=== PATIENT | female | born 1985 | race Asian ===

== ENCOUNTER 2017-06-07 00:39 | Inpatient (IN) | payer SELFPAY ==
[~2017-06-07] VITALS: Ht 165.1 cm; Wt 75.3 kg
[2017-06-07] MEDS ORDERED: PREN1SGL25 PO (01:06)
[2017-06-07] MEDS ORDERED: SYN.05 PO (01:07)
[2017-06-07] MEDS ORDERED: CARBOPROST 250 MCG/ML AMP IM PRN (01:10)
[2017-06-07] MEDS ORDERED: METHYLERGONOVINE 0.2 MG/ML AMP IM PRN (01:10)
[2017-06-07] MEDS ORDERED: NALBUPHINE HYDROCHLORIDE 10 MG/ML VIAL IVP PRN (01:10)
[2017-06-07] MEDS ORDERED: PROMETHAZINE 25 MG/ML VIAL IVP PRN (01:10)
[2017-06-07] MEDS ORDERED: OXYTOCIN 10 UNITS/ML VIAL IM SCH (01:10)
[2017-06-07] MEDS ORDERED: MISOPROSTOL 25 MCG TAB VG PRN (01:15)
[2017-06-07] MEDS: LACTATED RINGERS 1,000 ML IV SCH ×4 (01:30→07:57)
[2017-06-07 01:34] LABS: APPEARANCE,URINE SL CLOUDY (CLEAR); BILIRUBIN,URINE NEGATIVE (NEGATIVE); BLOOD, URINE NEGATIVE (NEGATIVE); COLOR,URINE YELLOW (YELLOW); LEUKOCYTE ESTERASE ,URINE 1+ (NEGATIVE); NITRITE, URINE NEGATIVE (NEGATIVE); UGLUCOSE TRACE (NEGATIVE)
[2017-06-07 01:40] LABS: BASOPHILS # (AUTO) 0.2 K/uL (0.00-0.22); BASOPHILS % (AUTO) 1.9 % (0.0-2.0); EOSINOPHILS # (AUTO) 0.2 K/uL (0-0.4); EOSINOPHILS % (AUTO) 1.4 % (0.0-4.0); HEMATOCRIT 36.4 % (36-48); HEMOGLOBIN 12.2 g/dL (12.0-16.0); LYMPHOCYTES # (AUTO) 2.1 K/uL (2.5-16.5); LYMPHOCYTES % (AUTO) 19.3 % (20.5-51.1); MEAN CORPUSCULAR HEMOGLOBIN 29 pg (27-31); MEAN CORPUSCULAR HGB CONC 33 g/dL (33-37); MEAN CORPUSCULAR VOLUME 87.5 fL (80-94); MONOCYTES # (AUTO) 0.9 K/uL (0.8-1.0); MONOCYTES % (AUTO) 8.5 % (1.7-9.3); NEUTROPHILS # (AUTO) 7.7 K/uL (1.8-7.7); NEUTROPHILS % (AUTO) 68.9 % (42.2-75.2); PLATELET COUNT (AUTO) 162 K/uL (140-450); RED BLOOD CELL COUNT(AUTO) 4.16 MIL/uL (4.20-5.40); RED CELL DISTRIBUTION WIDTH 12.9 % (11.6-13.7); WHITE BLOOD COUNT (AUTO) 11.1 K/uL (4.8-10.8)
[2017-06-07 01:52] LABS: ANION GAP 13.1 (8-16); CARBON DIOXIDE 25.8 mmol/L (21-32); CREATININE 0.6 mg/dL (0.6-1.3); POTASSIUM 3.9 mmol/L (3.5-5.1); TOTAL BILIRUBIN 0.2 mg/dL (0.0-1.0)
[2017-06-07] MEDS ORDERED: MISOPROSTOL 25 MCG TAB ONE (02:06)
[2017-06-07 02:41] LABS: RBC,URINE 0-5 (RARE) /HPF (0-5)
[2017-06-07 03:37] VITALS: BP 128/77
[2017-06-07] MEDS ORDERED: OXYTOCIN 20 UNITS in LACTATED RINGERS 1,000 ML IV SCH (08:01)
--- NOTE | 2017-06-07 11:17 | NUR ---
PATIENT HAS BEEN SCREENED AND CATEGORIZED LOW NUTRITION RISK. PATIENT WILL BE SEEN WITHIN 7 DAYS OF ADMISSION. 06/13/[address]
[2017-06-07] MEDS ORDERED: OXYTOCIN 10 UNITS/ML VIAL ONE (13:03)
[2017-06-07] MEDS ORDERED: IBUPROFEN 800 MG TAB PO PRN (17:00)
[2017-06-07] MEDS ORDERED: BENZOCAINE/MENTHOL 20%-0.5% 60 GM CAN TP PRN (17:00)
[2017-06-07] MEDS ORDERED: TEMAZEPAM 15 MG CAP PO PRN (17:00)
[2017-06-07] MEDS ORDERED: oxyCODONE/APAP 5/325 MG 1 TAB TAB PO PRN (17:00)
[2017-06-07] MEDS: HYDROcodone/APAP 5/325 MG 1 TAB TAB PO PRN ×2 (17:20→23:09)
[2017-06-07] MEDS ORDERED: LACTATED RINGERS 1,000 ML IV SCH (17:50)
[2017-06-07] MEDS ORDERED: DOCUSATE SOD/SENNA 50/8.6 MG 1 TAB PO SCH (21:00)
[2017-06-08] MEDS ORDERED: LEVOTHYROXINE 0.025 MG TAB PO SCH (06:30)
[2017-06-08 06:33] LABS: HEMATOCRIT 29.4 % (36-48); HEMOGLOBIN 9.6 g/dL (12.0-16.0)
[2017-06-09 11:59] LABS: RAPID PLASMA REAGIN NON-REACTIVE (Non Reactiv)
== END 2017-06-08 15:00 | disposition home or self-care (01) | DRG 775 ==
LOC: MFCC 00:39
PROVIDERS: ADMIT Obstetrics & Gynecology; ATTEND Obstetrics & Gynecology
PROC: 10E0XZZ Delivery of Products of Conception, External Approach (ICD-10-PCS; principal; 2017-06-07)
PROC: 0W8NXZZ Division of Female Perineum, External Approach (ICD-10-PCS; 2017-06-07)
PROC: 10907ZC Drainage of Amniotic Fluid, Therapeutic from Products of Conception, Via Natural or Artificial Opening (ICD-10-PCS; 2017-06-07)
PROC: 3E0R3BZ Introduction of Anesthetic Agent into Spinal Canal, Percutaneous Approach (ICD-10-PCS; 2017-06-07)
PROC: 00HU33Z Insertion of Infusion Device into Spinal Canal, Percutaneous Approach (ICD-10-PCS; 2017-06-07)
DX: O80 Encounter for full-term uncomplicated delivery (principal); Z37.0 Single live birth; Z3A.38 38 weeks gestation of pregnancy
CPT/HCPCS: 36415; 59200; 80053; 81001; 85018; 85025; 86592; 86886; 86900; 86901; 87086; J2590; J7120